=== PATIENT | female | born 1945 | race Caucasian/White ===

== ENCOUNTER 2018-11-08 12:09 | Emergency (ER) | payer OTHER, MEDICARE ==
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
--- NOTE | 2018-11-09 13:39 | EKG ---
[facility] [address] [facility] [place], [place] [address] Signed Sinus rhythm with occasional premature ventricular complexes and fusion complexes Left axis deviation Right bundle branch block Abnormal ECG No previous ECGs available Confirmed by KARISHMA SINGLETON DO ([id number]) on 11/09/2018 1:39:23 PM Electronically Signed By: KARISHMA SINGLETON DO 11/09/18 1339 PATIENT NAME: EVELIO SALSA Electrocardiogram DATE OF : 49 PHYSICIAN: KARISHMA SINGLETON DO REPORT #: [id number] REPORT IS CONFIDENTIAL AND NOT TO BE RELEASED WITHOUT AUTHORIZATION
== END 2018-11-08 15:35 | disposition short-term general hospital (02) ==
LOC: ED 12:09
PROC: 0QSKXZZ Reposition Left Fibula, External Approach (ICD-10-PCS; principal; 2018-11-08)
DX: S72.301A Unspecified fracture of shaft of right femur, initial encounter for closed fracture (principal); S82.832A Other fracture of upper and lower end of left fibula, initial encounter for closed fracture; S42.201A Unspecified fracture of upper end of right humerus, initial encounter for closed fracture; V89.2XXA Person injured in unspecified motor-vehicle accident, traffic, initial encounter
CPT/HCPCS: 27840; 36415; 36430; 71260; 73030; 73502; 73560; 73600; 74177; 80053; 81001; 85025; 85610; 85730; 86850; 86900; 86901; 86920; 93005; 93010; 96374; 96375; 99285-25; J1170; J2405; J7120; P9016; Q9967